=== PATIENT | female | born 1995 | race Caucasian/White ===

== ENCOUNTER 2022-12-13 20:33 | Emergency (ER) | payer BC, SELFPAY ==
[2022-12-13 20:37] VITALS: BP 140/94; PULSE 82; RESP 18; TEMP 36.5; O2SAT 100; BMI 23.5
--- NOTE | 2022-12-13 20:51 | CRLHL7_ITS ---
For Patients: As a result of the Cures Act, medical imaging exams and procedure reports are released immediately into your electronic medical record. You may view this report before your referring provider. If you have questions, please contact your health care provider. INDICATION: Bucked from horse, hit head. COMPARISON: None. TECHNIQUE: CT of the head without IV contrast. Coronal and sagittal reconstructions. FINDINGS: No intracranial hemorrhage, mass effect, or evidence of acute infarct. No midline shift. No abnormal extra-axial fluid collections. Normal caliber ventricular system. Orbits and extraocular muscles are symmetric. The visualized paranasal sinuses and mastoid air cells are clear. No acute fracture identified. Soft tissues are unremarkable. IMPRESSION: No acute intracranial findings. Please note that all CT scans at this facility use dose modulation, iterative reconstruction, and/or weight-based dosing when appropriate to reduce radiation dose to as low as reasonably achievable. Dictated by Gisela Engel MD @ 12/13/2022 9:25:31 PM (Electronically Signed)
--- NOTE | 2022-12-13 20:51 | CRLHL7_ITS ---
For Patients: As a result of the Cures Act, medical imaging exams and procedure reports are released immediately into your electronic medical record. You may view this report before your referring provider. If you have questions, please contact your health care provider. INDICATION: Bucked from horse, hit head and neck. COMPARISON: None. TECHNIQUE: CT of the cervical spine without IV contrast. Coronal and sagittal reconstructions. FINDINGS: No acute fracture or traumatic malalignment of the cervical spine. Vertebral body and disc space heights are well maintained. Normal vertebral body alignment. Straightening of the normal cervical lordosis. No significant neural foraminal narrowing or spinal canal stenosis. No prevertebral soft tissue swelling. Visualized intracranial contents are unremarkable. The mastoid air cells are clear. The thyroid gland is normal in appearance. The imaged lung apices are clear. IMPRESSION: No acute fracture or traumatic malalignment of the cervical spine. Please note that all CT scans at this facility use dose modulation, iterative reconstruction, and/or weight-based dosing when appropriate to reduce radiation dose to as low as reasonably achievable. Dictated by Gisela Engel MD @ 12/13/2022 9:23:53 PM (Electronically Signed)
[2022-12-13 21:00] VITALS: BP 130/78; PULSE 76; RESP 16; TEMP 36.7; O2SAT 99
[2022-12-13] MEDS: ACETAMINOPHEN 500 MG TABLET 1000 MG PO (21:00)
--- NOTE | 2022-12-13 21:55 | PC.NURSE ---
pt vital signs stable, states having mild headache but tylenol improved, rates 2/10. denies numbness or tingling currently in left arm/hand. reviewed discharge instructions. no further questions or concerns. Home with friend.
--- NOTE | 2022-12-13 23:59 | ED.FALL ---
HPI - Fall General Chief Complaint: Fall/Minor Trauma Stated Complaint: Bucked from Horse Hit head Time Seen by Provider: 12/13/22 20:37 Source: patient Mode of arrival: ambulatory Limitations: no limitations History of Present Illness HPI Narrative: Patient is a very nice lady was out on her quarter or worse, when she was bucked off into a ditch, landing approximately 5 ft down onto her head. She was able to get up and cursed the horse out. She then rode the horse home. She was wearing a helmet, home it is all scraped up, when she got back to her stable, she noted she was slightly dizzy, she denies any problems with the vision, any problems with gait, she has a little bit of nausea but has not vomited. No previous history of head injury she is on no anticoagulants, denies any neck pain or stiffness, but does have some numbness the came down her left shoulder, into her left arm. This is subsequently resolved. She denies any retrograde or antegrade amnesia. complaint: fall Onset (ago): hour(s) Fall from: other Fall witnessed: no Place fall occurred: home Loss of consciousness: No Prolonged down time: no Symptoms prior to fall: none Context: other Location of injury: head and neck Severity: moderate Associated symptoms (after fall): headache, neck pain and numbness Related Data Home Medications Medication Instructions Recorded Confirmed norelgestromin 150 mcg-e.estradiol patch transdermal 08/28/22 08/28/22 35 mcg/24 hr weekly transderm patch (Zafemy) Allergies Allergy/AdvReac Type Severity Reaction Status Date / Time No Known Drug Allergies Allergy Verified 08/28/22 12:36 Review of Systems Status of ROS: Reports: 10 or more systems reviewed and unremarkable except as noted in History and below PFSH [facility] Social History Smoking Status: Never smoker Do you use any of these nicotine containing products: None Second hand tobacco smoke exposure: No How often do you have a drink containing alcohol: monthly or less How often do you have six or more drinks on one occasion: Less than monthly AUDIT-C Alcohol total score: 2 Non-prescribed substance use: denies use Exam Narrative: Exam Narrative: Patient is seen in room 2 she is in no apparent distress, GCS is 15/15, she is alert and oriented x3. her pupils are equal round reactive to light, she tracks normally with absence of nystagmus, cranial nerves 3-12 are normal, mouth opening is normal, and no midfacial tenderness or TMs bilaterally are normal with absence of Ureña sign, her neck has excellent full range of motion from 4 cm through 23 cm, lateral flexion is normal at 20? and rotation is normal at 75 degrees plus bilaterally. Shoulders have full range of motion celery stripper strengths are normal biceps triceps power is normal she has no tenderness to palpation over her elbows bilaterally, and supination pronation flexion extension are normal, wrists are nontender, celery stripper strengths are normal, cervical spine, thoracic spine, and lumbar spine are palpated and normal. There is no tenderness to palpation, chest is good air entry bilaterally with no wheezing crackles noted heart sounds are normal, abdomen is soft, there is no guarding no organomegaly no tenderness, bowel sounds are normal no pelvic tenderness on palpation or rocking. She is able to walk around the room with normal distal and proximal strength. Sensation is normal in her upper lower extremities. Gait is assessed and is non ataxic Const: Vital Signs, click to edit/add: Vital Signs - 24 hr 12/13/22 20:37 12/13/22 21:00 Temperature 97.7 F 98.0 F Pulse Rate [Pulse Oximeter] 82 76 Respiratory Rate 18 16 Blood Pressure [Le ft Upper Arm] 140/94 H 130/78 Pulse Oximetry 100 99 Oxygen Delivery Me thod Room Air Room Air Documenting provider has reviewed patient's vital signs: yes Course Course Hospital Course: I had a long talk with the patient of the diagnosis of concussion, this is what she has, in the treatment, course, complications, and follow-up. Vital Signs Vital signs: Initial Vital Signs Temperature 97.7 F 12/13/22 20:37 Temperature Source Temporal Artery Scan 12/13/22 20:37 Pulse Rate 82 12/13/22 20:37 Respiratory Rate 18 12/13/22 20:37 Blood Pressure 140/94 H 12/13/22 20:37 Blood Pressure Mean 109 H 12/13/22 20:37 Pulse Oximetry 100 12/13/22 20:37 Oxygen Delivery Method Room Air 12/13/22 20:37 Vital Signs Temperature 97.7 F 12/13/22 20:37 Pulse Rate 82 12/13/22 20:37 Respiratory Rate 18 12/13/22 20:37 Blood Pressure 140/94 H 12/13/22 20:37 Pulse Oximetry 100 12/13/22 20:37 Oxygen Delivery Method Room Air 12/13/22 20:37 Temperature 98.0 F 12/13/22 21:00 Pulse Rate 76 12/13/22 21:00 Respiratory Rate 16 12/13/22 21:00 Blood Pressure 130/78 12/13/22 21:00 Pulse Oximetry 99 12/13/22 21:00 Oxygen Delivery Method Room Air 12/13/22 21:00 MDM - Fall MDM Narrative Medical decision making narrative: Life-threatening differential diagnosis is considered include: Subarachnoid hemorrhage, subdural hemorrhage, epidural hemorrhage. Other differential diagnosis considered include concussion, closed head injury, or neck fracture. Medical Records Attestation: I reviewed the patient's medical records. Imaging Data CT scan - head: Attestation: I have reviewed the pertinent imaging results. My impression: Negative head and neck CT Radiologist's impression: Patient: [facility] Facility:?[facility] Patient ID:?[id number] Study:?CT Spine Cervical W/O-12/13/2022 9:12:24 PM Ordering Physician:Lilian Lowe Final Report: INDICATION: Bucked from horse, hit head and neck. COMPARISON: None. TECHNIQUE: CT of the cervical spine without IV contrast. Coronal and sagittal reconstructions. FINDINGS: No acute fracture or traumatic malalignment of the cervical spine. Vertebral body and disc space heights are well maintained. Normal vertebral body alignment. Straightening of the normal cervical lordosis. No significant neural foraminal narrowing or spinal canal stenosis. No prevertebral soft tissue swelling. Visualized intracranial contents are unremarkable. The mastoid air cells are clear. The thyroid gland is normal in appearance. The imaged lung apices are clear. IMPRESSION: No acute fracture or traumatic malalignment of the cervical spine. Please note that all CT scans at this facility use dose modulation, iterative reconstruction, and/or weight-based dosing when appropriate to reduce radiation dose to as low as reasonably achievable. Dictated by Gisela Engel MD @ 12/13/2022 9:23:53 PM (Electronic Signature) Patient: [facility] Facility:?[facility] Patient ID:?[id number] Study:?CT Head W/O-12/13/2022 9:12:50 PM Ordering Physician:Lilian Lowe Final Report: INDICATION: Bucked from horse, hit head. COMPARISON: None. TECHNIQUE: CT of the head without IV contrast. Coronal and sagittal reconstructions. FINDINGS: No intracranial hemorrhage, mass effect, or evidence of acute infarct. No midline shift. No abnormal extra-axial fluid collections. Normal caliber ventricular system. Orbits and extraocular muscles are symmetric. The visualized paranasal sinuses and mastoid air cells are clear. No acute fracture identified. Soft tissues are unremarkable. IMPRESSION: No acute intracranial findings. Please note that all CT scans at this facility use dose modulation, iterative reconstruction, and/or weight-based dosing when appropriate to reduce radiation dose to as low as reasonably achievable. Dictated by Gisela Engel MD @ 12/13/2022 9:25:31 PM (Electronic Signature) Discharge Plan Discharge Clinical Impression: Concussion without loss of consciousness Patient Disposition: Home, Self-Care Condition: Stable Instructions: Concussion (ED), Cognitive Disorders after Traumatic Brain Injury (ED), Post Concussion Syndrome (ED) Additional Instructions: Home, rest, Tylenol, for the 1st 24-36 hours after that you may use ibuprofen, lots of rest, sleep is okay. I salute you for wearing helmet when you ride, decrease use of phones, television, or any sort of electronic devices, no exercise for the 1st 48 hours, postconcussion syndrome is very really should follow-up with [facility] ongoing symptoms with her primary care physician. Prescriptions: No Action Zafemy 150-35 mcg/24 hr patch weekly transdermal Follow Up/Referrals: Rossana Hall PA [Primary Care Provider] - Stand Alone Forms: [employer] Info Instructions
== END 2022-12-13 22:04 | disposition home or self-care (01) ==
PROVIDERS: Emergency Provider Family Medicine; PCP Physician Assistant
DX: S06.0X0A Concussion without loss of consciousness, initial encounter (principal); V80.010A Animal-rider injured by fall from or being thrown from horse in noncollision accident, initial encounter
CPT/HCPCS: 70450; 72125; 99283; 99284; A9270

== ENCOUNTER 2023-01-16 15:22 | Outpatient (RCR) | payer BC, SELFPAY | END 2023-05-03 08:45 | disposition home or self-care (01) | PROVIDERS: PCP Physician Assistant; Visit Provider Student in an Organized Health Care Education/Training Program | DX: F07.81 Postconcussional syndrome (principal); Z51.89 Encounter for other specified aftercare | CPT/HCPCS: 97110; 97165; 97535; X5282 ==

== ENCOUNTER 2023-06-18 22:24 | Emergency (ER) | payer BC, SELFPAY ==
[2023-06-18 22:44] VITALS: BP 150/97; PULSE 81; RESP 18; TEMP 36.6; O2SAT 100; BMI 22.9
--- NOTE | 2023-06-19 00:44 | ED_ITS ---
HPI - General Adult General Chief complaint: Arrhythmia/Palpitations Stated complaint: heart palpitations, trouble breathing Time Seen by Provider: 06/19/23 00:25 Source: patient Mode of arrival: ambulatory History of Present Illness HPI narrative: 28-year-old female presents the emergency department with feelings of irregular heartbeat. These have been going on for years but are becoming more frequent per her report. She has noticed some several times in the last 4 days. They do tend to happen more at rest, less so with exertion. Not accompanied by syncope. She does have a feeling of shortness of breath but more so as she describes it it sounds like her breast catches when she has these feelings of palpitations. She describes a feeling of what sounds like a dropped beat and then either a heavy heart pounding or a fast heartbeat for a few seconds and then her heart rate will return to normal. No prior echo or Holter monitor per her report. She does report that she was iron deficient in her a couple of years ago but denies history of thyroid disease. Her family history is unknown as she is adopted but has no obvious known personal history of structural heart disease. 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 No fevers or recent trauma. No productive cough. Denies alcohol intake. No other exacerbating or alleviating factors noted. Reports her past medical history is benign. Her only home medication is combined contraceptive patch. Nonsmoker. ROS notable for the cardiac symptoms as above, otherwise denies times 12 systems. Related Data Home Medications Medication Instructions Recorded Confirmed norelgestromin 150 mcg-e.estradiol patch transdermal 08/28/22 08/28/22 35 mcg/24 hr weekly transderm patch (Zafemy) Allergies Allergy/AdvReac Type Severity Reaction Status Date / Time No Known Drug Allergies Allergy Verified 08/28/22 12:36 [facility] Social History Smoking Status: Never smoker Do you use any of these nicotine containing products: None Second hand tobacco smoke exposure: No How often do you have a drink containing alcohol: monthly or less How often do you have six or more drinks on one occasion: Less than monthly AUDIT-C Alcohol total score: 2 Non-prescribed substance use: denies use Exam Const: Vital Signs, click to edit/add: Vital Signs - 24 hr 06/18/23 22:44 Temperature 97.9 F Pulse Rate [Pulse Oximeter] 81 Respiratory Rate 18 Blood Pressure [Ri ght Upper Arm] 150/97 H Pulse Oximetry 100 Oxygen Delivery Me thod Room Air Documenting provider has reviewed patient's vital signs: yes Common normals: no apparent distress General appearance: cooperative and well kempt HENMT: Common normals: normocephalic Head and scalp: normocephalic Face and sinus: normal facial exam Eye: General eye: normal appearance of both eyes Neck & C-Spine: General: normal visual inspection Resp: Common normals: normal respiratory effort, no use of accessory muscles and clear to auscultation bilaterally Effort & inspection: able to speak in complete sentences Auscultation: clear to auscultation bilaterally Cardio: Common normals: regular rate, regular rhythm, S1 normal heart sound, S2 normal heart sound and no murmurs Rate: regular rate Rhythm: regular rhythm Heart sounds: S1 normal and S2 normal GI: Common normals: Normal to inspection, nondistended, normoactive bowel sounds present, soft to palpation, non-tender and no hepatosplenomegaly Palpation: soft and no hepatosplenomegaly Extremity: Common normals: normal to inspection, normal capillary refill and no pedal edema Psych: Appearance: well kempt Attitude: engaged Activity/motor behavior: appropriate eye contact Insight: insight good Judgement: judgment good Skin: Common normals: no rashes or lesions noted General skin exam: no rashes or lesions noted Course Course ED Course: EKG performed, fully reassuring. Patient not currently symptomatic. Offered thyroid testing, basic blood work. Counseled patient that the best test for this a Holter monitor which can only be put on in the clinic during typical office hours, cannot be put on here in the middle of the night. She would prefer to have her blood work done with her primary care doctor for appropriate follow-up which I completely agree with. She is reassured by the benign EKG and initial findings. Discussed that this is most likely PVCs, likely worsened by caffeine intake but iron deficiency anemia, possible thyroid disease could all be factors here. She would like to have the Holter monitor test performed. Counseled patient on findings. She does have a smart watch with an arrhythmia monitor, encourage her to wear this in the interim. This may help us better understand what is going on. She will make a follow-up appointment with her primary care doctor within the next 2 weeks to have lab testing including CBC, iron studies, thyroid tests performed as well as I Holter monitor. No further questions. Vital Signs Vital signs: Initial Vital Signs Temperature 97.9 F 06/18/23 22:44 Temperature Source Temporal Artery Scan 06/18/23 22:44 Pulse Rate 81 06/18/23 22:44 Respiratory Rate 18 06/18/23 22:44 Blood Pressure 150/97 H 06/18/23 22:44 Blood Pressure Mean 114 H 06/18/23 22:44 Blood Pressure Position Sitting 06/18/23 22:44 Pulse Oximetry 100 06/18/23 22:44 Oxygen Delivery Method Room Air 06/18/23 22:44 Vital Signs Temperature 97.9 F 06/18/23 22:44 Pulse Rate 81 06/18/23 22:44 Respiratory Rate 18 06/18/23 22:44 Blood Pressure 150/97 H 06/18/23 22:44 Pulse Oximetry 100 06/18/23 22:44 Oxygen Delivery Method Room Air 06/18/23 22:44 Temperature 97.9 F 06/18/23 22:44 Pulse Rate 81 06/18/23 22:44 Respiratory Rate 18 06/18/23 22:44 Blood Pressure 150/97 H 06/18/23 22:44 Pulse Oximetry 100 06/18/23 22:44 Oxygen Delivery Method Room Air 06/18/23 22:44 Medical Decision Making ECG Data Attestation: I personally reviewed and interpreted this ECG as follows: Prior ECG tracings: not available for review Interpretation: Normal sinus rhythm, rate 77. Normal axis. No significant ST or T-wave abnormalities. Good R-wave progression. Normal intervals. Discharge Plan Discharge Clinical Impression: Palpitations Patient Disposition: Home, Self-Care Condition: Improved Instructions: Heart Palpitations (DC) Additional Instructions: As we discussed, your symptoms are most likely consistent with a benign heart rhythm abnormality called premature ventricular contractions, often abbreviated as PVCs. We were not able to detect any on your monitoring here in the emergency department but these are very common. The best way to tell what is going on is with a Holter monitor test. This is put on in the clinic in you typically will wear this patch type monitor for 48 hours. Having low iron, thyroid disease, poor sleep habits and or caffeine can make these worse. There also could be a different type of abnormal heart rhythm going on which we would detect by the Holter monitor. I do recommend that you have iron studies, basic blood work and a thyroid test performed as part of your workup. You have elected to have this done with her primary care doctor which I agree is the best choice. Please make a follow-up appointment within the next couple of weeks to have the blood work and Holter monitor test completed. In the meantime, be mindful that coming down off of caffeine, as in 8-24 hours later, you are more likely to have these heart rhythm issues. If you have severe chest pain, severe dizziness, lightheadedness or significant neurological changes, consider earlier re-evaluation or emergency department. Activity Level: No Restrictions Discharge Diet: Regular Prescriptions: No Action Zafemy 150-35 mcg/24 hr patch weekly transdermal Follow Up/Referrals: Rossana Hall PA [Primary Care Provider] - Stand Alone Forms: [employer] Info Instructions
== END 2023-06-19 01:03 | disposition home or self-care (01) ==
LOC: ED 06-19 00:52
PROVIDERS: Emergency Provider Family Medicine; PCP Physician Assistant
DX: R00.2 Palpitations (principal)
CPT/HCPCS: 99283